=== PATIENT | female | born 1995 | race American Indian/Alaskan Native ===

== ENCOUNTER 2017-02-10 09:59 | Emergency (ER) | payer BC, OTHER ==
[2017-02-10 10:02] VITALS: TEMP 97.3
--- NOTE | 2017-02-10 10:31 | C.PDOC ---
History Of Present Illness 21 year old female presents to ED for evaluation of new onset of bilateral ankle , and left wrist pain for the last 3 days. Pt reports having TM of 101 4 days ago but no other associated symptoms. Notes having joint pain the next day. Pt reports pain to front of bilateral ankle, and states pain is worse with foot hyperflexion. Denies new shoe use, prolonged recent walking, or trauma. swelling ? Pt walking without any difficulty. States pain occasionally radiates to shins. Pt reports that left wrist pain is on the top and occasionally radiates to forearm. No associated pain with position or movement. Denies swelling of the left wrist. Pt is right hand dominant. No rash or other joint pain. Pt reports limited relief with Tylenol and Aleve. NEW ONSET B/L ANKLE, L WRIST PAIN X 3 DAYS. SP TM 101 4 DAYS AGO BUT NO OTHER ASSOC SX. NEXT DAY W JOINT PAINT. B/L ANKLE PAIN ON FRONT OF ANKLE, WORSE W FOOT HYPERFLEXION. DENIES NEW SHOE USE, PROLONGED RECENT WALKING, TRAUMA. ? SWELLING. WALK WO DIFF. PAIN OCC RADIATES TO SHINS. L WRIST PAIN ON TOP, OCC RAD FOREARM. NO ASSOC W POSITION OR MOVEMENT. NO SWELL. R HANDED. NO RASH, OTHER JOINT PAIN. LIMITED RELIEF W TYL AND ALEVE EXAM NAD NONTOXIC EXT B/L ANKLES NO SWELL ATRAUM NONTEND AROM WO DIFF; L WRIST NEG; GAIT WNL SKIN NEG NEURO INTACT Time Seen by Provider: 02/10/17 10:10 Chief Complaint (Nursing): Lower Extremity Problem/Injury History Per: Patient History/Exam Limitations: no limitations Onset/Duration Of Symptoms: Days (3), Sudden Onset Current Symptoms Are (Timing): Still Present Recent travel outside of the [place]: No Additional History Per: Patient Past Medical History Reviewed: Historical Data, Nursing Documentation, Vital Signs Vital Signs: Last Vital Signs Temp 97.3 F L 02/10/17 10:02 Pulse 83 02/10/17 10:33 Resp 18 02/10/17 10:33 BP 135/72 02/10/17 10:33 Pulse Ox 99 02/10/17 11:07 - Medical History PMH: Asthma, Bipolar Disorder Family History: States: No Known Family Hx - Social History Hx Alcohol Use: Yes Hx Substance Use: No - Immunization History Hx Tetanus Toxoid Vaccination: Yes Hx Influenza Vaccination: No Hx Pneumococcal Vaccination: No Review Of Systems Except As Marked, All Systems Reviewed And Found Negative. Constitutional: Positive for: Fever. Negative for: Chills Musculoskeletal: Positive for: Hand Pain (left wrist), Foot Pain (bilateral ankle) Skin: Negative for: Rash Neurological: Negative for: Weakness, Numbness Physical Exam - Physical Exam Appears: Non-toxic, No Acute Distress Skin: Normal Color, Warm, Dry, No Rash Head: Atraumatic, Normacephalic Extremity: Normal ROM (FROM of bilateral ankles and left wrist without any difficulty), No Tenderness (no tenderness to bilateral ankle or left wrist), Capillary Refill (<2 sec.), No Deformity, No Swelling (no swelling to bilateral ankles or left wrist) Extremity: Bilateral: Atraumatic, Normal Color And Temperature, Normal ROM Pulses: Left Radial: Normal, Right Radial: Normal, Left Dorsalis Pedis: Normal, Right Dorsalis Pedis: Normal Neurological/Psych: Oriented x3, Normal Speech, Normal Motor, Normal Sensation Gait: Steady ED Course And Treatment O2 Sat by Pulse Oximetry: 99 (on RA) Pulse Ox Interpretation: Normal Disposition Counseled Patient/Family Regarding: Diagnosis, Need For Followup - Disposition Referrals: YOUR,PMD [Other] Disposition: HOME/ ROUTINE Disposition Time: 10:31 Condition: GOOD Instructions: Musculoskeletal Pain (ED) Forms: [facility] (Spanish) - Clinical Impression Clinical Impression: Arthralgia - Scribe Statement The provider has reviewed the documentation as recorded by the Aimeeibcharles Sanders All medical record entries made by the Aimeeibe were at my direction and personally dictated by me. I have reviewed the chart and agree that the record accurately reflects my personal performance of the history, physical exam, medical decision making, and the department course for this patient. I have also personally directed, reviewed, and agree with the discharge instructions and disposition.
[2017-02-10 10:34] VITALS: BP 135/72; PULSE 83; RESP 18
[2017-02-10 11:00] VITALS: O2SAT 99
== END 2017-02-10 10:35 | disposition home or self-care (01) ==
LOC: C.ER 09:59
DX: M25.532 Pain in left wrist (principal); M25.572 Pain in left ankle and joints of left foot; M25.571 Pain in right ankle and joints of right foot